=== PATIENT | male | born 1985 | race Native Hawaiian/Other Pacific Islander ===

== ENCOUNTER 2017-01-13 22:39 | Emergency (ER) | payer OTHER ==
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
[2017-01-13 23:07] VITALS: BP 140/94; PULSE 75; RESP 16; TEMP 97.7; O2SAT 98
== END 2017-01-13 23:14 | disposition home or self-care (01) ==
LOC: ED 22:39
DX: S16.1XXA Strain of muscle, fascia and tendon at neck level, initial encounter (principal); V49.9XXA Car occupant (driver) (passenger) injured in unspecified traffic accident, initial encounter; Y92.410 Unspecified street and highway as the place of occurrence of the external cause